=== PATIENT | female | born 1940 | race American Indian/Alaskan Native ===

== ENCOUNTER 2016-11-19 09:34 | Day surgery (SDC) | payer MEDICARE ==
[2016-11-18 08:25] VITALS: BMI 24.7
[2016-11-19] MEDS ORDERED: Propofol 10 mg/ml Inj (20 ML) ONE (09:57)
[2016-11-19] MEDS ORDERED: Lactated Ringer's 1,000 ML IV SCH (10:45)
[2016-11-19 11:08] VITALS: RESP 16
[2016-11-19 11:31] VITALS: TEMP 97.7; O2SAT 98
[2016-11-19 11:33] VITALS: BP 143/74; PULSE 57
== END 2016-11-19 12:25 | disposition home or self-care (01) ==
LOC: ENDO 09:34
PROVIDERS: ATTEND Internal Medicine Gastroenterology
DX: K29.50 Unspecified chronic gastritis without bleeding (principal); I10 Essential (primary) hypertension; Z86.73 Personal history of transient ischemic attack (TIA), and cerebral infarction without residual deficits
CPT/HCPCS: 43239; 88305; 88342; J2001; J2704; J3010; J7120

== ENCOUNTER 2018-01-25 07:28 | Day surgery (SDC) | payer MEDICARE ==
[2017-02-05 08:46] VITALS: BMI 26.9
[2018-01-25] MEDS ORDERED: Propofol 10 mg/ml Inj (20 ML) ONE (09:01)
[2018-01-25] MEDS ORDERED: Sodium Chloride 0.9% 1,000 ML IV SCH (09:30)
[2018-01-25 09:49] VITALS: O2SAT 100
[2018-01-25 10:36] VITALS: BP 129/61; PULSE 55; RESP 14; TEMP 97.8
== END 2018-01-25 11:45 | disposition home or self-care (01) ==
LOC: ENDO 07:28
PROVIDERS: ATTEND Internal Medicine Gastroenterology
DX: D12.4 Benign neoplasm of descending colon (principal); D12.3 Benign neoplasm of transverse colon; K57.30 Diverticulosis of large intestine without perforation or abscess without bleeding; K64.8 Other hemorrhoids; Z88.0 Allergy status to penicillin; I10 Essential (primary) hypertension; E78.00 Pure hypercholesterolemia, unspecified; K21.9 Gastro-esophageal reflux disease without esophagitis; K29.70 Gastritis, unspecified, without bleeding; K59.00 Constipation, unspecified; K31.84 Gastroparesis; Z86.010 Personal history of colon polyps; E11.9 Type 2 diabetes mellitus without complications; E03.9 Hypothyroidism, unspecified
CPT/HCPCS: 45380; 82948; 88305; J2001; J2704; J7030

== ENCOUNTER 2018-03-02 09:26 | Emergency (ER) | payer MEDICARE ==
[2018-03-02 09:29] VITALS: BMI 25.2
[2018-03-02 09:42] VITALS: RESP 17; TEMP 98.4
--- NOTE | 2018-03-02 09:48 | ED PDOC ---
Arrival/HPI - General Chief Complaint: Abnormal Skin Integrity Time Seen by Provider: 03/02/18 09:36 Historian: Patient - History of Present Illness Narrative History of Present Illness (Text): 03/02/18 09:44 77 year old female, whose past medical history includes hypertension and endometriosis, who presents to the emergency department complaining of a bubble like bump on her left chest since last week. Patient notes bump was sore last week, but feels fine now. Patient had a mammogram done October. Patient had another mammogram done 3 weeks ago. Patient's PMD concluded results were normal. Patient denies any fever, chills, shortness of breath, nausea, vomiting , diarrhea, back pain, neck pain, headache, dizziness, or any other complaints. PMD: Dr. Bah Time/Duration: 1 week Symptom Onset: Sudden Symptom Course: Unchanged Activities at Onset: Light Context: Home Past Medical History - Provider Review Nursing Documentation Reviewed: Yes - Infectious Disease Hx of Infectious Diseases: None - Tetanus Immunization Tetanus Immunization: Unknown - Cardiac Hx Cardiac Disorders: No - Pulmonary Hx Respiratory Disorders: No - Neurological Hx Neurological Disorder: No - HEENT Hx HEENT Disorder: No - Renal Hx Renal Disorder: No - Endocrine/Metabolic Hx Endocrine Disorders: Yes Hx Diabetes Mellitus Type 2: Yes Hx Hypothyroidism: Yes - Integumentary Hx Dermatological Disorder: No - Musculoskeletal/Rheumatological Hx Musculoskeletal Disorders: No - Gastrointestinal Hx Gastrointestinal Disorders: No - Genitourinary/Gynecological Hx Genitourinary Disorders: No - Psychiatric Hx Psychophysiologic Disorder: No Hx Substance Use: No - Surgical History Other/Comment: TUBALIGATION;PARTIAL THYROIDECTOMY;LEFT FOOT SURGERY - Anesthesia Hx Anesthesia Reactions: No Hx Malignant Hyperthermia: No - Suicidal Assessment Feels Threatened In Home Enviroment: No Family/Social History - Physician Review Nursing Documentation Reviewed: Yes Family/Social History: Unknown Family HX Smoking Status: Smoker Currrent Status Unknown Hx Alcohol Use: No Hx Substance Use: No Hx Substance Use Treatment: No Allergies/Home Meds Allergies/Adverse Reactions: Allergies azithromycin Allergy (Verified 03/02/18 09:44) VOMITING Home Medications: Home Meds Medication Instructions Recorded Confirmed Unobtainable 03/02/18 03/02/18 Review of Systems - Physician Review All systems were reviewed & negative as marked: Yes - Review of Systems Constitutional: Normal Eyes: Normal ENT: Normal Respiratory: Normal. absent: SOB, Cough Cardiovascular: Normal. absent: Chest Pain, Palpitations Gastrointestinal: Normal. absent: Abdominal Pain Genitourinary Female: Normal. absent: Dysuria, Frequency Musculoskeletal: Other (bump on left chest). absent: Back Pain, Neck Pain Skin: Normal. absent: Rash Neurological: Normal. absent: Headache, Dizziness Endocrine: Normal Hemo/Lymphatic: Normal Psychiatric: Normal Physical Exam Vital Signs Reviewed: Yes Vital Signs Temp Pulse Resp BP Pulse Ox 03/02/18 10:13 98.4 F 69 17 118/68 98 03/02/18 09:40 98.4 F 71 17 124/73 97 Temperature: Afebrile Blood Pressure: Normal Pulse: Regular Respiratory Rate: Normal Appearance: Positive for: Well-Appearing, Non-Toxic, Comfortable Pain Distress: None Mental Status: Positive for: Alert and Oriented X 3 - Systems Exam Head: Present: Atraumatic, Normocephalic Pupils: Present: PERRL Extroacular Muscles: Present: EOMI Conjunctiva: Present: Normal Mouth: Present: Moist Mucous Membranes Neck: Present: Normal Range of Motion Respiratory/Chest: Present: Clear to Auscultation, Good Air Exchange, Other ( superior left chest wall ? 2mm pimple/mass; no fluctuance; no redness or swelling). No: Respiratory Distress, Accessory Muscle Use Cardiovascular: Present: Regular Rate and Rhythm, Normal S1, S2. No: Murmurs Abdomen: No: Tenderness, Distention, Peritoneal Signs Back: Present: Normal Inspection. No: CVA Tenderness, Midline Tenderness, Paraspinal Tenderness Upper Extremity: Present: Normal Inspection. No: Cyanosis, Edema Lower Extremity: Present: Normal Inspection. No: Edema Neurological: Present: GCS=15, CN II-XII Intact, Speech Normal Skin: Present: Warm, Dry, Normal Color. No: Rashes Psychiatric: Present: Alert, Oriented x 3, Normal Insight, Normal Concentration Medical Decision Making ED Course and Treatment: 03/02/18 09:54 Impression: 77 year old female presents to the emergency department complaining of a bubble like bump on the left chest since last week. Plan: -- CXR -- Reassess and disposition Progress Notes: CXR was negative. I discussed plan for follow up with patient and she will make she follows up with her PMD in 1-2days. She was advised to return to the ED with any chest pain or any other concern. - RAD Interpretation Radiology Orders: 03/02/18 09:44 CXR [CHEST TWO VIEWS (PA/LAT)] [RAD] Stat - Scribe Statement The provider has reviewed the documentation as recorded by the Scribe Samantha Cruz All medical record entries made by the Scribe were at my direction and personally dictated by me. I have reviewed the chart and agree that the record accurately reflects my personal performance of the history, physical exam, medical decision making, and the department course for this patient. I have also personally directed, reviewed, and agree with the discharge instructions and disposition. Disposition/Present on Arrival - Present on Arrival Any Indicators Present on Arrival: No History of DVT/PE: No History of Uncontrolled Diabetes: No Urinary Catheter: No History of Decub. Ulcer: No History Surgical Site Infection Following: None - Disposition Have Diagnosis and Disposition been Completed?: Yes Diagnosis: Chest mass Disposition: HOME/ ROUTINE Disposition Time: 10:13 Patient Plan: Discharge Condition: IMPROVED Additional Instructions: [facility], thank you for letting us take care of you today. Your provider was Curtis Brock DO and you were treated for CHEST AREA LUMPS. The emergency medical care you received today was directed at your acute symptoms. If you were prescribed any medication, please fill it and take as directed. It may take several days for your symptoms to resolve. Return to the Emergency Department if your symptoms worsen, do not improve, or if you have any other problems. Please contact your doctor or call one of the physicians/clinics you have been referred to that are listed on the Patient Visit Information form that is included in your discharge packet. Bring any paperwork you were given at discharge with you along with any medications you are taking to your follow up visit. Our treatment cannot replace ongoing medical care by a primary care provider outside of the emergency department. Thank you for allowing the [facility] team to be part of your care today. If you had an X-Ray or CT scan: A Radiologist will review the ED reading if any change in treatment is needed we will contact you. If you had a blood, urine, or wound culture: It will take several days for the results, if any change in treatment is needed we will contact you. If you had an STI test: It will take 48 hours for the results. Please call after 1 week if you have not heard back. Referrals: Call [facility], [Non-Staff] - Follow up with primary Forms: [employer] (Thai)
--- NOTE | 2018-03-02 10:13 | RAD ---
Date of service: 03/02/2018 HISTORY: upper left chest wall lumps COMPARISON: No prior. TECHNIQUE: Chest PA and lateral FINDINGS: LUNGS: No active pulmonary disease. PLEURA: No significant pleural effusion identified. No pneumothorax apparent. CARDIOVASCULAR: Normal. OSSEOUS STRUCTURES: No significant abnormalities. VISUALIZED UPPER ABDOMEN: Normal. OTHER FINDINGS: None. IMPRESSION: No active disease.
[2018-03-02 10:14] VITALS: BP 118/68; PULSE 69; O2SAT 98
== END 2018-03-02 10:15 | disposition home or self-care (01) ==
LOC: ED 09:26
DX: R22.2 Localized swelling, mass and lump, trunk (principal); E11.9 Type 2 diabetes mellitus without complications; I10 Essential (primary) hypertension; E03.9 Hypothyroidism, unspecified

== ENCOUNTER 2018-08-26 08:48 | Outpatient (CLI) | payer MEDICARE | END 2018-08-26 08:49 | disposition home or self-care (01) | LOC: RAD 08:48 ==

== ENCOUNTER 2019-01-04 09:49 | Outpatient (CLI) | payer MEDICARE | END 2019-01-04 09:50 | disposition home or self-care (01) | LOC: LAB 09:49 ==